=== PATIENT | male | born 1970 | race Caucasian/White ===

== ENCOUNTER 2020-09-14 23:49 | Emergency (ER) | payer OTHER ==
[~2020-09-14] VITALS: Ht 170.2 cm; Wt 90.7 kg
[~2020-09-14 23:49] MED LIST: ALBUTEROL INH; AMOXICILLIN 50500 MG PO; CEPHALEXIN 500500 M3 PO; CIPRO500 MG PO; CLEOCIN HCL150 MG PO; CLEOCIN HCL300 MG; CLEOCIN HCL300 MG PO; DOXYCYCLINE 10100 M1 PO; DOXYCYCLINE 10100 MG PO; DOXYCYCLINE HYC50 M1 PO; FLAGYL500 M1 PO; HIBICLENS120 ML TP; HYDROCODONE-AP1 EAC6 PO; IBUPROFEN 800800 M1 PO; IBUPROFEN 800800 MG PO; LIDOCAINE VISC100 M1 SWISH&SPIT; LORTABELXR PO; LOTRIMIN30 GM TP; MUPIROCIN22 GM TOP; NOHOMEMEDICATIONS; NORCO 5-325 TA1 EACH PO; PENICILLIN V P500 MG PO; PROAIR HFA8.5 GM; PROAIR HFA8.5 GM IH; TRAMADOL 50 MG50 MG PO; ULTRACET TABLE1 EACH PO; ULTRAM 50MG TAB50 MG PO; ZOFRAN ODT4 MG PO; ZOFRAN4 MG PO; ZPAK PO
[2020-09-15] MEDS ORDERED: HYDROCODON-ACE1 EAC7 PO (02:50)
[2020-09-15] MEDS ORDERED: CEPHALEXIN500 MG PO (02:50)
[2020-09-15 03:47] VITALS: BP 105/60
== END 2020-09-15 03:52 | disposition home or self-care (01) ==
LOC: M.ERS 23:49
DX: S52.344A Nondisplaced spiral fracture of shaft of radius, right arm, initial encounter for closed fracture (principal); J45.909 Unspecified asthma, uncomplicated; Z86.14 Personal history of Methicillin resistant Staphylococcus aureus infection; Z88.5 Allergy status to narcotic agent; Z88.0 Allergy status to penicillin; W54.0XXA Bitten by dog, initial encounter; Y93.89 Activity, other specified; Y92.89 Other specified places as the place of occurrence of the external cause; Y99.8 Other external cause status

== ENCOUNTER 2021-03-21 15:22 | Emergency (ER) | payer OTHER ==
[~2021-03-21] VITALS: Ht 170.2 cm; Wt 90.7 kg
[~2021-03-21 15:22] MED LIST changes: +CEPHALEXIN500 MG PO; +HYDROCODON-ACE1 EAC7 PO
[2021-03-21 15:32] VITALS: BP 140/93
[2021-03-21] MEDS ORDERED: PROAIR HFA8.5 GM INH (15:37)
== END 2021-03-21 18:13 | disposition left against medical advice (07) ==
LOC: M.ERS 15:22
DX: R51.9 Headache, unspecified (principal); R11.0 Nausea; Z53.21 Procedure and treatment not carried out due to patient leaving prior to being seen by health care provider